=== PATIENT | female | born 1965 | race Caucasian/White ===

== ENCOUNTER 2016-09-26 07:06 | Day surgery (SDC) | payer OTHER ==
[2016-09-26] MEDS ORDERED: Propofol 200 MG/20 ML SDV IV ONE (08:30)
[2016-09-26] MEDS ORDERED: Lactated Ringers 1,000 ML IV SCH (08:30)
[2016-09-26] MEDS ORDERED: Midazolam 1 MG/ML 2 ML SDV IV ONE (08:30)
--- NOTE | 2016-09-26 08:51 | PCM.OPNOTE ---
- General Post-Op/Procedure Note Date of Surgery/Procedure: 09/26/16 Operative Procedure(s): c scope Findings: nl colon Pre Op Diagnosis: screening Post-Op Diagnosis: nl colon Anesthesia Technique: MAC Primary Surgeon: Randy Flores Anesthesia Provider: Joanne Gallegos Pathology: none Complications: None Condition: Good Free Text/Narrative:: see dictation
[2016-09-26 09:55] VITALS: BP 117/75
--- NOTE | 2016-09-26 11:07 | OR ---
DATE OF OPERATION: 09/26/2016 SURGEON: Randy Flores MD PROCEDURE PERFORMED: Colonoscopy. PREOPERATIVE DIAGNOSIS: Need for screening colonoscope. POSTOPERATIVE DIAGNOSIS: Sigmoid diverticulosis. INDICATIONS FOR PROCEDURE: This is a 50-year-old white female, referred for her initial screening colonoscopy. She was offered and accepted the same. DESCRIPTION OF OPERATION: After an excellent IV sedation was administered, the digital rectal exam was performed. No marked abnormality was noted. The flexible colonoscope was inserted and advanced to the cecum without difficulty. The following findings were noted. Ascending colon, unremarkable. Transverse colon, unremarkable. Descending colon, unremarkable. Sigmoid, mild diverticulosis. Rectum and anus unremarkable. Colon was deflated; scope was removed. The patient tolerated the procedure well and was taken to recovery room in good condition. /[id number] /DORIANL
== END 2016-09-26 10:21 | disposition home or self-care (01) ==
LOC: FB.SDS 07:06
PROVIDERS: ATTEND Surgery
DX: Z12.11 Encounter for screening for malignant neoplasm of colon (principal); K57.30 Diverticulosis of large intestine without perforation or abscess without bleeding; Z88.8 Allergy status to other drugs, medicaments and biological substances; Z79.899 Other long term (current) drug therapy; K21.9 Gastro-esophageal reflux disease without esophagitis; F32.9 Major depressive disorder, single episode, unspecified; J45.909 Unspecified asthma, uncomplicated; Z98.890 Other specified postprocedural states; F17.210 Nicotine dependence, cigarettes, uncomplicated
CPT/HCPCS: 45378; 81025; J2250; J2704; J7120